=== PATIENT | male | born 1960 | race Caucasian/White ===

== ENCOUNTER 2025-02-24 18:53 | Inpatient (IN) | payer MEDICAID ==
[~2025-02-24] VITALS: Ht 177.8 cm; Wt 166.5 kg
[~2025-02-24 18:53] MED LIST: ACET-2708 MT; ALBU4TAB6 PO; ATOR20TA65 MT; FLUT200B3; FURO-151 MT; FURO80TA87 MT; LISI40TA21 MT; MONT-39 MT; SPIR25TA PO
[2025-02-24] MEDS: FUROSEMIDE 40MG/4ML VIAL IV ONE (19:39)
[2025-02-24 20:57] LABS: BASOPHILS % 1.4 % (0.0-2.0); EOSINOPHILS % 1.8 % (0.0-5.0); HEMATOCRIT. 38.4 % (42.0-52.0); HEMOGLOBIN. 12.2 g/dL (14.0-18.0); LYMPHOCYTES % 13.6 % (20.0-50.0); MEAN PLATELET VOLUME 8.3 fl (7.4-10.4); MONOCYTES % 9.1 % (2.0-8.0); NEUTROPHILS % 74.1 % (40.0-76.0); PLATELET 265 x1000/uL (130-400); RED BLOOD CELL COUNT 4.09 mill/uL (4.7-6.1); RED CELL DISTRIBUTION WIDTH 14.5 % (11.6-14.6)
[2025-02-24 21:12] LABS: INR 1.0
[2025-02-24 21:13] LABS: CREATININE 1.0 mg/dL (0.6-1.3)
[2025-02-24 21:14] LABS: UREA NITROGEN BLOOD 12 mg/dL (9-23)
[2025-02-24 21:15] LABS: ASPARTATE AMINOTRANSFERASE 28 IU/L (<34); BILIRUBIN DIRECT 0.1 mg/dL (<=3.0)
[2025-02-24 21:16] LABS: BILIRUBIN TOTAL 0.2 mg/dL (0.1-1.0); PROTEIN TOTAL 6.9 g/dL (6.0-8.3)
[2025-02-24 21:40] LABS: TROPONIN I HIGH SENSITIVITY 68 ng/L (3.0-53)
[2025-02-24] MEDS: CLOPIDOGREL 75MG TABLET PO ONE (21:49)
[2025-02-24] MEDS: ASPIRIN 325MG EC TABLET PO ONE (21:50)
[2025-02-24 23:58] VITALS: BP 137/84; PULSE 75; RESP 16; TEMP 36.974
[2025-02-25] VITALS (9 sets, daily range): BP systolic 110–130; BP diastolic 70–99; PULSE 67–87; RESP 19–23; TEMP 36.5–36.8; O2SAT 90–93
[2025-02-25] MEDS ORDERED: ACETAMINOPHEN 325MG TABLET PO PRN (02:15)
[2025-02-25] MEDS: BUDESONIDE 0.5MG/2ML NEB HHN SCH (03:31)
[2025-02-25] MEDS: IPRATROPIUM/ALBUTEROL 0.5-3(2.5)MG/3ML NEB HHN SCH (04:17)
[2025-02-25 08:32] LABS: RED BLOOD CELL COUNT 4.42 mill/uL (4.7-6.1); RED CELL DISTRIBUTION WIDTH 15.1 % (11.6-14.6)
[2025-02-25 08:43] LABS: CREATININE 1.0 mg/dL (0.6-1.3); TRIGLYCERIDE 94 mg/dL (0-150); UREA NITROGEN BLOOD 12 mg/dL (9-23)
[2025-02-25 08:44] LABS: LDL CHOLESTEROL 70 mg/dL (5-100)
[2025-02-25] MEDS: FUROSEMIDE 40MG TABLET PO SCH (08:50)
[2025-02-25] MEDS: ENOXAPARIN 40MG/0.4ML SYR SUBCUT SCH (08:50)
[2025-02-25] MEDS: SPIRONOLACTONE 25MG TABLET PO SCH (08:50)
[2025-02-25] MEDS: LISINOPRIL 40MG TABLET PO SCH (08:51)
[2025-02-25] MEDS: FUROSEMIDE 100MG/10ML VIAL IVP SCH ×2 (11:46→18:43)
[2025-02-25] MEDS: METOLAZONE 2.5MG TABLET PO NR (11:47)
[2025-02-25 12:27] LABS: TROPONIN I HIGH SENSITIVITY 28 ng/L (3.0-53)
[2025-02-25 12:30] LABS: PLATELET 173 x1000/uL (130-400)
[2025-02-25 16:50] LABS: BG BASE EXCESS 8.5 mmol/L (-2.0-3.0); BG CARBOXYHEMOGLOBIN 1.2 % (0.5-1.5); BG DEOXYHEMOGLOBIN 7.3 % (0.0-5.0); BG FLOW(L/min) 5.00 L/min; BG FRACTION INSPIRED OXYGEN 40; BG HCO3 ACT 35.0 mmol/L (21.0-28.0); BG METHEMOGLOBIN 0.0 % (0.5-1.5); BG OXYGEN SATURATION 92.6 % (94.0-98.0); BG OXYHEMOGLOBIN 91.5 % (94.0-98.0); BG PCO2 56.2 mmHg (35.0-48.0); BG PH 7.412 (7.350-7.450); BG PO2 64.2 mmHg (83.0-108.0); BG SAMPLE SITE LEFT RADIAL; BG TOTAL HEMOGLOBIN 13.8 g/dL (13.5-17.5); BG VENT MODE NASAL CANNULA
[2025-02-25] MEDS: MONTELUKAST SODIUM 10MG TABLET PO SCH (18:43)
[2025-02-25] MEDS: METHYLPREDNISOLONE SOD SUCC 40MG/ML (ACT-O-VIAL) IV SCH (18:44)
[2025-02-25 18:57] LABS: CLARITY URINE CLEAR (CLEAR); COLOR URINE YELLOW (YELLOW); GLUCOSE URINE NEGATIVE (NEGATIVE); KETONES URINE NEGATIVE (NEGATIVE); LEUKOCYTE ESTERASE URINE NEGATIVE (NEGATIVE); NITRITE URINE NEGATIVE (NEGATIVE); OCCULT BLOOD URINE NEGATIVE (NEGATIVE); PH URINE 5.0 (4.5-8.0); PROTEIN URINE NEGATIVE (NEGATIVE); SPECIFIC GRAVITY URINE 1.008 (1.005-1.030); UROBILINOGEN URINE 0.2 E.U./dL (0.2-1.0)
[2025-02-25] MEDS: ATORVASTATIN CALCIUM 20MG TABLET PO SCH (21:48)
[2025-02-26] VITALS (12 sets, daily range): BP systolic 118–154; BP diastolic 75–86; PULSE 66–93; RESP 17–22; TEMP 36.3–37.1; O2SAT 87–99
[2025-02-26 09:08] LABS: INFLUENZA TYPE A Presumptive Negative (Pres. Neg.)
[2025-02-26 09:09] LABS: INFLUENZA TYPE B Presumptive Negative (Pres. Neg.)
[2025-02-26 09:10] LABS: RESPIRATORY SYNCYTIAL VIRUS Not Detected (Not Detectd)
[2025-02-26] MEDS: METOLAZONE 2.5MG TABLET PO SCH (14:00)
[2025-02-26] MEDS: METHYLPREDNISOLONE SOD SUCC 40MG/ML (ACT-O-VIAL) IV SCH (21:11)
[2025-02-27] VITALS (11 sets, daily range): BP systolic 113–139; BP diastolic 56–85; PULSE 78–100; RESP 16–21; TEMP 36.6–36.9; O2SAT 90–96
[2025-02-27] MEDS ORDERED: IPRATROPIUM/ALBUTEROL 0.5-3(2.5)MG/3ML NEB HHN PRN (10:00)
[2025-02-27 12:51] LABS: CREATININE 1.1 mg/dL (0.6-1.3); UREA NITROGEN BLOOD 29 mg/dL (9-23)
[2025-02-27 13:37] LABS: BG BASE EXCESS 9.0 mmol/L (-2.0-3.0); BG CARBOXYHEMOGLOBIN 0.8 % (0.5-1.5); BG DEOXYHEMOGLOBIN 7.6 % (0.0-5.0); BG FLOW(L/min) 5.00 L/min; BG FRACTION INSPIRED OXYGEN 40; BG HCO3 ACT 35.7 mmol/L (21.0-28.0); BG METHEMOGLOBIN 0.3 % (0.5-1.5); BG OXYGEN SATURATION 92.3 % (94.0-98.0); BG OXYHEMOGLOBIN 91.3 % (94.0-98.0); BG PCO2 57.8 mmHg (35.0-48.0); BG PH 7.409 (7.350-7.450); BG PO2 66.0 mmHg (83.0-108.0); BG SAMPLE SITE LEFT RADIAL; BG TOTAL HEMOGLOBIN 14.1 g/dL (13.5-17.5); BG VENT MODE NASAL CANNULA
[2025-02-27] MEDS: IPRATROPIUM/ALBUTEROL 0.5-3(2.5)MG/3ML NEB HHN SCH (16:06)
[2025-02-28] VITALS (11 sets, daily range): BP systolic 93–150; BP diastolic 70–91; PULSE 69–91; RESP 2–24; TEMP 36.4–36.9; O2SAT 90–96
[2025-02-28] MEDS: METHYLPREDNISOLONE SOD SUCC 40MG/ML (ACT-O-VIAL) IV SCH (08:48)
[2025-02-28] MEDS ORDERED: METO2.5T2 MT (10:04)
[2025-03-01] VITALS (8 sets, daily range): BP systolic 104–139; BP diastolic 72–85; PULSE 72–92; RESP 12–24; TEMP 36.2–36.9; O2SAT 90–97
[2025-03-01] MEDS: SODIUM CHLORIDE 45ML SPRAY NS PRN (12:51)
[2025-03-01 13:37] LABS: BASOPHILS % 0.2 % (0.0-2.0); EOSINOPHILS % 0.1 % (0.0-5.0); HEMATOCRIT. 43.4 % (42.0-52.0); HEMOGLOBIN. 14.0 g/dL (14.0-18.0); LYMPHOCYTES % 7.2 % (20.0-50.0); MEAN PLATELET VOLUME 8.5 fl (7.4-10.4); MONOCYTES % 6.9 % (2.0-8.0); NEUTROPHILS % 85.6 % (40.0-76.0); PLATELET 278 x1000/uL (130-400); RED BLOOD CELL COUNT 4.75 mill/uL (4.7-6.1); RED CELL DISTRIBUTION WIDTH 14.8 % (11.6-14.6)
[2025-03-01 13:41] LABS: CREATININE 1.4 mg/dL (0.6-1.3); UREA NITROGEN BLOOD 45.0 mg/dL (9-23)
== END 2025-03-01 18:45 | disposition home or self-care (01) | DRG 194 ==
LOC: ER 18:53 → 3WST 21:30 → EDBEDREQ 21:57 → EDBEDREQTM 21:57 → ENRESERV 23:02
PROVIDERS: ADMIT Internal Medicine; ATTEND Internal Medicine
DX: I50.33 Acute on chronic diastolic (congestive) heart failure (principal); I21.4 Non-ST elevation (NSTEMI) myocardial infarction; J96.21 Acute and chronic respiratory failure with hypoxia; R78.81 Bacteremia; L03.116 Cellulitis of left lower limb; Z68.43 Body mass index [BMI] 50.0-59.9, adult; J91.8 Pleural effusion in other conditions classified elsewhere; I11.0 Hypertensive heart disease with heart failure; I16.0 Hypertensive urgency; E66.01 Morbid (severe) obesity due to excess calories; E78.00 Pure hypercholesterolemia, unspecified; F17.210 Nicotine dependence, cigarettes, uncomplicated; I25.10 Atherosclerotic heart disease of native coronary artery without angina pectoris; J45.909 Unspecified asthma, uncomplicated; Z99.81 Dependence on supplemental oxygen; Z79.899 Other long term (current) drug therapy
CPT/HCPCS: 36415; 36600; 71045; 80048; 80061; 80076; 81003; 82375; 82805; 83605; 83735; 83880; 84132; 84145; 84484; 85025; 85027; 87070; 87420; 87804; 93005; 93306; 94070; 94640; 94660; 94664; 99291; A4606; J1650; J1938; J2919; J7626